=== PATIENT | female | born 1945 | race Hispanic/Latino ===

== ENCOUNTER 2018-04-21 16:19 | Observation (INO) | payer MEDICARE ==
[~2018-04-21] VITALS: Ht 149.9 cm; Wt 60.9 kg
[2018-04-21 17:49] LABS: BASOPHILS # (AUTO) 0.1 (0.0-0.1); BASOPHILS % 0.4 % (0.0-1.0); EOSINOPHILS # (AUTO) 0.2 (0.0-0.4); EOSINOPHILS % 1.6 % (0.0-6.0); HEMATOCRIT 42.8 % (34.2-44.1); HEMOGLOBIN 14.7 g/dL (12.0-16.0); LYMPHOCYTES # (AUTO) 2.7 (1.0-3.2); LYMPHOCYTES % 22.2 % (18.0-39.1); MEAN CORPUSCULAR HEMOGLOBIN 30.7 pg (28-32); MEAN CORPUSCULAR HGB CONC 34.3 g/dL (31-35); MEAN CORPUSCULAR VOLUME 89.4 fL (81-99); MONOCYTES # (AUTO) 0.9 (0.2-0.8); MONOCYTES % 7.8 % (4.4-11.3); NEUTROPHILS # (AUTO) 8.1 (2.1-6.9); NEUTROPHILS % 67.7 % (38.7-80.0); PLATELET COUNT 322 x10e3/uL (140-360); RED BLOOD COUNT 4.79 x10e6/uL (3.6-5.1); RED CELL DISTRIBUTION WIDTH 12.3 % (11.7-14.4)
[2018-04-21 17:54] LABS: CLARITY,URINE HAZY (CLEAR); COLOR,URINE YELLOW (YELLOW); LEUKOCYTE ESTERASE ,URINE NEGATIVE (NEGATIVE); NITRITE,URINE NEGATIVE (NEGATIVE)
[2018-04-21 17:55] LABS: BILIRUBIN,URINE NEGATIVE (NEGATIVE); KETONES,URINE NEGATIVE (NEGATIVE); PROTEIN,URINE DIPSTICK NEGATIVE (NEGATIVE); URINE UROBILINOGEN 0.2 mg/dL (0.2 - 1)
[2018-04-21 18:10] LABS: ALBUMIN 4.2 g/dL (3.5-5.0); ALBUMIN/GLOBULIN RATIO 0.9 (0.8-2.0); ANION GAP 19.6 mmol/L (8-16); CALCIUM 10.1 mg/dL (8.4-10.2); CREATININE, SERUM 1.27 mg/dL (0.57-1.11); POTASSIUM 3.6 mmol/L (3.5-5.1)
[2018-04-21 18:26] LABS: BACTERIA,URINE FEW /HPF; EPITHELIAL CELLS,URINE MANY /LPF; RBC,URINE 0-5 /HPF (0-5)
[2018-04-21] MEDS ORDERED: SODIUM CHLORIDE 0.9% 50ML 0 ML ONE (21:17)
[2018-04-21] MEDS ORDERED: IOPAMIDOL 370 MG/ML 200 ML INFUS..BTL INJ ONE (21:17)
[2018-04-21] MEDS ORDERED: SODIUM CHLORIDE 0.9% 1000ML 1,000 ML IV STA (21:37)
[2018-04-21] MEDS ORDERED: SODIUM CHLORIDE 0.9% 1000ML 1,000 ML ONE (21:41)
--- NOTE | 2018-04-21 23:11 | Diagnostic Imaging Report ---
EXAM: CT Abdomen and Pelvis WITH contrast INDICATION: abd pain with BM COMPARISON: None. TECHNIQUE: Abdomen and pelvis were scanned utilizing a multidetector helical scanner from the lung base to the pubic symphysis after administration of IV contrast. Coronal and sagittal reformations were obtained. Routine protocol was performed. Scan was performed when during portal venous phase. IV CONTRAST: 100 mL of Isovue-370 ORAL CONTRAST: Water COMPLICATIONS: None RADIATION DOSE: Total DLP: 302 mGy*cm Estimated effective dose: (DLP x 0.015 x size factor) mSv Dose modulation, iterative reconstruction, and/or weight based adjustment of the mA/kV was utilized to reduce the radiation dose to as low as reasonably achievable. FINDINGS: LINES and TUBES: None. LOWER THORAX: Unremarkable HEPATOBILIARY: The liver is diffuse hypodense compared to the spleen, consistent with diffuse hepatic diffuse hepatic steatosis. Left hepatic 0.6 cm hypodensity, too small to characterize, statistically likely a cyst. No biliary ductal dilation. CBD prominence likely secondary to age, tapers adjacent to a duodenal diverticulum. GALLBLADDER: No radio-opaque stones or sludge. No wall thickening. SPLEEN: No splenomegaly. PANCREAS: No focal masses or ductal dilatation. ADRENALS: No adrenal nodules KIDNEYS/URETERS: Small right kidney. Kidneys enhance symmetrically. No hydronephrosis. Left inferior renal pole 0.7 cm hypodensity, too small to characterize, statistically likely a cyst. No stones. GI TRACT: No evidence of obstruction. Sigmoid colonic wall thickening with adjacent stranding in a segment containing numerous diverticula. A 2.1 cm area of hypoattenuation within the wall (series 2 image 58), nonspecific, possibly edema versus mass. Appendix is normal. PELVIC ORGANS/BLADDER: Left ovarian 4.2 cm benign-appearing cyst. Otherwise, unremarkable. LYMPH NODES: No lymphadenopathy. VESSELS: Unremarkable. PERITONEUM / RETROPERITONEUM: No free air or fluid. BONES: Unremarkable. SOFT TISSUES: Unremarkable. IMPRESSION: Findings suggestive of acute sigmoid colonic diverticulitis. Underlying mass not excluded. Recommend follow-up CT after appropriate therapy to document resolution. Left ovarian 4.2 cm benign-appearing cyst. Per ACR 2013 white paper guidelines, recommend further evaluation with pelvic ultrasound. Signed by: DR. Corby Jenkins MD on 04/21/2018 11:07 PM
[2018-04-22] MEDS ORDERED: CIPROFLOXACIN 400 MG/D5W 200ML 200 ML IV STA (00:10)
[2018-04-22] MEDS ORDERED: MORPHINE SULFATE INJ 4 MG/ML INJ 1ML IV PRN (00:15)
[2018-04-22] MEDS ORDERED: ONDANSETRON HCL INJ 2MG/ML 2ML 2 MG/ML VIAL IV PRN (00:15)
[2018-04-22] MEDS ORDERED: TIMOPTIC 0.25%1 EACH (00:45)
[2018-04-22] MEDS ORDERED: LEVOTHYROXINE50 MCG PO (00:45)
[2018-04-22] MEDS ORDERED: MOTRIN200 MG PO (00:45)
[2018-04-22] MEDS ORDERED: GLIMEPIRIDE2 MG PO (00:45)
[2018-04-22] MEDS ORDERED: SIMVASTATIN10 MG PO (00:45)
[2018-04-22] MEDS ORDERED: LOSARTAN-HCTZ1 EAC1 PO (00:45)
[2018-04-22] MEDS ORDERED: OMEPRAZOLE20 MG PO (00:45)
[2018-04-22] MEDS ORDERED: DEXTROSE 50% SYRINGE 50 ML IV PRN ×2 (01:30→18:30)
--- OUTSIDE RECORDS SUMMARY | 2018-04-22 02:31 | XMS REPORT ---
Author Author [facility] Address Unknown Phone Unavailable Care Team Providers Care Retail Planning Manager Name Role Phone Sherman LOPEZ Unavailable Unavailable Problems This patient has no known problems. Allergies, Adverse Reactions, Alerts This patient has no known allergies or adverse reactions. Medications This patient has no known medications. Results Test Description Test Time Test Comments Text Results Atomic Results Result Comments CT ABDOMEN/PELVIS W 2018-04-21 22:48:00 [place] [address] Patient Name: BORIS HARGROVE MR #: [id number] : 1945 Age/Sex: 72/F Req #: [id number] Adm Physician: Ordered by: NEGRITA CALVIN MD Report #: [id number] Location: ER Room/Bed: Procedure: [id number] CT/CT ABDOMEN/PELVIS W Exam Date: 04/21/18 Exam Time: 2231 REPORT STATUS: Signed EXAM: CT Abdomen and Pelvis WITH contrast INDIC ATION: abd pain with BM COMPARISON: None. TECHNIQUE: Abdomen and pelvis were scanned utilizing a multidetector helical scanner from the lung base to the pubic symphysis after administration of IV contrast. Coronal and sagittal reformations were obtained. Routine protocol was performed. Scan was performed when during portal venous phase. IV CONTRAST: 100 mL of Isovue-370 ORAL CONTRAST: Water COMPLICATIONS: None RADIATION DOSE: Total DLP: 302 mGy*cm Estimated effective dose: (DLP x 0.015 x size factor) mSv Dose modulation, iterative reconstruction, and/or weight based adjustment of the mA/kV was utilized to reduce the radiation dose to as low as reasonably achievable. FINDINGS: LINES and TUBES: None. LOWER THORAX: Unremarkable HEPATOBILIARY: The liver is diffuse hypodense compared to the spleen, consistent with diffuse hepatic diffuse hepatic steatosis. Left hepatic 0.6 cm hypodensity, too small to characterize, statistically likely a cyst. No biliary ductal dilation. CBD prominence likely secondary to age, tapers adjacent to a duodenal diverticulum. GALLBLADDER: No radio-opaque stones or sludge. No wall thickening. SPLEEN: No splenomegaly. PANCREAS: No focal masses or ductal dilatation. ADRENALS: No adrenal nodules KIDNEYS/URETERS: Small right kidney. Kidneys enhance symmetrically. No hydronephrosis. Left inferior renal pole 0.7 cm hypodensity, too small to characterize, statistically likely a cyst. No stones. GI TRACT: No evidence of obstruct ion. Sigmoid colonic wall thickening with adjacent stranding in a segment containing numerous diverticula. A 2.1 cm area of hypoattenuation within the wall (series 2 image 58), nonspecific, possibly edema versus mass. Appendix is normal. PELVIC ORGANS/BLADDER: Left ovarian 4.2 cm benign-appearing cyst. Otherwise, unremarkable. LYMPH NODES: No lymphadenopathy. VESSELS: Unremarkable. PERITONEUM / RETROPERITONEUM: No free air or fluid. BONES: Unremarkable. SOFT TISSUES: Unremarkable. IMPRESSION: Findings suggestive of acute sigmoid colonic diverticulitis. Underlying mass not excluded. Recommend follow-up CT after appropriate therapy to document resolution. Left ovarian 4.2 cm benign-appearing cyst. Per ACR 2013 white paper guidelines, recommend further evaluation with pelvic ultrasound. Signed by: DR. Corby Martin MD on 04/21/2018 11:07 PM Dictated By: CORBY MARTIN MD 06 Transcribed By: AMADA on 04/21/182306 COPY TO: NEGRITA CALVIN MD
[2018-04-22] MEDS: D5.45%NS/KCL 20MEQ 1,000 ML IV SCH ×3 (02:40→21:05)
[2018-04-22] MEDS: METRONIDAZOLE 500MG/NS 100ML IV SCH ×4 (07:46→21:05)
[2018-04-22] MEDS: INSULIN REGULAR, HUMAN 100 UNIT/1 ML 3ML VIAL SQ SCH ×5 (08:07→21:04)
--- NOTE | 2018-04-22 13:11 | NUR ---
patient arrived on unit via bed, alert and oriented and in no distress. Call perez within reach, bed in lowest position and family at bedside.
[2018-04-22 13:54] VITALS: BP 138/73
[2018-04-22 14:16] VITALS: BP 138/73
[2018-04-22 15:52] VITALS: BP 143/171
[2018-04-22] MEDS: METRONIDAZOLE 500MG/NS 100ML 100 ML IV SCH (19:00)
--- NOTE | 2018-04-22 19:10 | NUR ---
rounded with adobe cq developer nurse, patient aware of change. Call perez within reach, bed in lowest position and family at bedside.
--- NOTE | 2018-04-22 19:21 | NUR ---
report received and walking rounds complete. pt resting in bed and in no apparent distress. bangladeshi speaking. family member at bedside and to stay the night.
[2018-04-22 20:00] VITALS: BP 143/171
[2018-04-22 20:10] VITALS: BP 174/82
[2018-04-22 23:47] VITALS: BP 179/82
[2018-04-23] VITALS (7 sets, daily range): BP systolic 140–169; BP diastolic 66–81
[2018-04-23] MEDS: METRONIDAZOLE 500MG/NS 100ML 100 ML IV SCH ×3 (03:03→19:53)
[2018-04-23 05:46] LABS: BASOPHILS % 0.4 % (0.0-1.0); EOSINOPHILS # (AUTO) 0.2 (0.0-0.4); EOSINOPHILS % 2.7 % (0.0-6.0); HEMATOCRIT 35.9 % (34.2-44.1); HEMOGLOBIN 11.9 g/dL (12.0-16.0); LYMPHOCYTES % 22.9 % (18.0-39.1); MEAN CORPUSCULAR HEMOGLOBIN 30.4 pg (28-32); MEAN CORPUSCULAR HGB CONC 33.1 g/dL (31-35); MEAN CORPUSCULAR VOLUME 91.6 fL (81-99); NEUTROPHILS # (AUTO) 5.6 (2.1-6.9); NEUTROPHILS % 62.7 % (38.7-80.0); PLATELET COUNT 291 x10e3/uL (140-360); RED BLOOD COUNT 3.92 x10e6/uL (3.6-5.1); RED CELL DISTRIBUTION WIDTH 12.4 % (11.7-14.4)
[2018-04-23] MEDS: LEVOTHYROXINE SODIUM 50 MCG TAB PO SCH (06:17)
--- NOTE | 2018-04-23 06:18 | NUR ---
Pt daughter reports that she took her mother to the bathroom and she had a BM with some mucus and a bit of blood in it. Informed them I would informed day shift nurse to inform MD and that MD would be coming by this am.
[2018-04-23 06:22] LABS: ANION GAP 13.5 mmol/L (8-16); CREATININE, SERUM 0.91 mg/dL (0.57-1.11); POTASSIUM 4.5 mmol/L (3.5-5.1)
--- NOTE | 2018-04-23 07:24 | NUR ---
report given and walking rounds complete. pt resting and in no apparent distress. family at bedside
[2018-04-23] MEDS: INSULIN REGULAR, HUMAN 100 UNIT/1 ML 3ML VIAL SQ SCH ×6 (07:30→21:43)
[2018-04-23] MEDS: LOSARTAN POTASSIUM 100 MG TAB PO SCH (08:39)
[2018-04-23] MEDS: HYDROCHLOROTHIAZIDE 25 MG TAB PO SCH (08:40)
[2018-04-23] MEDS ORDERED: NON-FORMULARY MEDICATION (Losartan/Hydrochlorothiazide (Losartan-Hctz 100-25 Mg Tab) 1 TAB PO SCH (09:00)
[2018-04-23] MEDS: D5.45%NS/KCL 20MEQ 1,000 ML IV SCH ×2 (12:25→16:10)
--- NOTE | 2018-04-23 13:14 | NUR ---
SOCIAL WORK INITIAL ASSESSMENT Utility Bagger to bedside to discuss plan of care with patient/family. CM/SW role and care transitions discussed. Anticipated discharge plan discussed along with duration of care. CM/SW discussed patients right to make decisions in care. CM/SW work hours given. Patient lives: IN WON HOUSE WITH DAUGHTER Admit/Transfer: VIA ED POA/Emergency contact: DAUGHTER IN LAW SHANNA [phone] Current/Previous Home Health: NONE PCP/Follow-up Care: JACQUELINE Current/Previous DME: NONE Other Services: NONE Employment Status: RETIRED Areas of Concerns: NONE Referral Needs: NONE Education Needs: NONE IMM/MAGANA given and signed (if applicable): UPON ADMISSION Goal for discharge: RETURN HOME WITH DAUGHTER IN LAW CM/SW left business card at the bedside with contact information. Name and number was also written on the patients whiteboard. Patient verbalized understanding of discussion. CM will follow-up with ongoing discharge and transition of care needs.
--- NOTE | 2018-04-23 13:22 | NUR ---
POST DISCHARGE STATUS FORM FILED IN CHART TO RETURN HOME WITH NO NEEDS
[2018-04-23] MEDS ORDERED: ACETAMINOPHEN 325 MG TAB PO PRN (17:15)
--- NOTE | 2018-04-23 19:01 | NUR ---
Report given to oncoming shift. Call perez within reach.
[2018-04-24] VITALS (7 sets, daily range): BP systolic 123–177; BP diastolic 66–84
[2018-04-24] MEDS: D5.45%NS/KCL 20MEQ 1,000 ML IV SCH (00:02)
[2018-04-24] MEDS ORDERED: LISINOPRIL 2.5 MG TAB PO ONE (02:45)
[2018-04-24] MEDS: METRONIDAZOLE 500MG/NS 100ML 100 ML IV SCH ×3 (02:56→19:49)
[2018-04-24 06:02] LABS: ANION GAP 12.8 mmol/L (8-16); CALCIUM 9.2 mg/dL (8.4-10.2); CREATININE, SERUM 0.95 mg/dL (0.57-1.11); POTASSIUM 4.8 mmol/L (3.5-5.1)
[2018-04-24] MEDS: LEVOTHYROXINE SODIUM 50 MCG TAB PO SCH (06:32)
[2018-04-24] MEDS: INSULIN REGULAR, HUMAN 100 UNIT/1 ML 3ML VIAL SQ SCH ×4 (07:49→20:56)
[2018-04-24] MEDS: LOSARTAN POTASSIUM 100 MG TAB PO SCH (09:08)
[2018-04-24] MEDS: HYDROCHLOROTHIAZIDE 25 MG TAB PO SCH (09:08)
[2018-04-24] MEDS: LISINOPRIL 2.5 MG TAB PO SCH (09:09)
[2018-04-25] VITALS: BP 153/77
--- NOTE | 2018-04-25 00:42 | NUR ---
dr Tripp Weinstein came and made round, ordered to change diet to GI soft diet.
[2018-04-25] MEDS: METRONIDAZOLE 500MG/NS 100ML 100 ML IV SCH (03:54)
[2018-04-25 04:00] VITALS: BP 153/82
[2018-04-25 04:05] VITALS: BP 153/77
[2018-04-25 07:22] VITALS: BP 109/56
[2018-04-25] MEDS: LEVOTHYROXINE SODIUM 50 MCG TAB PO SCH (07:29)
--- NOTE | 2018-04-25 07:55 | NUR ---
patient up in bed, Alert with no distress, call light in reach denies any pain, daughter at bed side
[2018-04-25] MEDS: HYDROCHLOROTHIAZIDE 25 MG TAB PO SCH (08:20)
[2018-04-25] MEDS: LOSARTAN POTASSIUM 100 MG TAB PO SCH (08:20)
[2018-04-25] MEDS: LISINOPRIL 2.5 MG TAB PO SCH (08:20)
--- NOTE | 2018-04-25 09:18 | NUR ---
CM LEFT MESSAGE WITH DR. KURTZ REGARDING PATIENT BARRIER TO DISCHARGE. MD PENDING RETURN CALL. CM CALLED BEDSIDE RN, BRADLEY REGARDING PATIENT BARRIERS TO DISCHARGE. PER BRADLEY, PATIENT TO POSSIBLY BE DISCHARGING TODAY. BRADLEY STATES HE WILL CALL MD PRIOR TO ROUNDS FOR PATIENT PLAN OF CARE. CM TO FOLLOW UP.
[2018-04-25 10:38] VITALS: BP 109/56
[2018-04-25 11:22] VITALS: BP 128/72
[2018-04-25] MEDS ORDERED: FLAGYL250 MG PO (13:56)
[2018-04-25] MEDS ORDERED: LEVAQUIN500 MG PO (13:58)
--- NOTE | 2018-04-25 14:55 | NUR ---
patient discharged home, prescription given, she and her daughter aware about f/up with Dr Tripp Weinstein, IV canula removed with tip intact, no ss of infiltration noted, daughter at bed side taking her home, all personnel belongings taken with her, transported via to [facility]
== END 2018-04-25 14:45 | disposition home or self-care (01) ==
LOC: ER 16:19 → ERHOLD 04-22 02:26 → IMCU 04-22 13:20
DX: K57.30 Diverticulosis of large intestine without perforation or abscess without bleeding (principal); E11.9 Type 2 diabetes mellitus without complications; I10 Essential (primary) hypertension; K21.9 Gastro-esophageal reflux disease without esophagitis; E78.5 Hyperlipidemia, unspecified; Z79.84 Long term (current) use of oral hypoglycemic drugs
CPT/HCPCS: 36415 ×4; 74177; 80048 ×2; 80053; 81001; 82948 ×3; 84080; 85025 ×2; 96360; 96361 ×3; 99285; G0378 ×4; J0744; J1817; J7030; Q9967

== ENCOUNTER → 2018-06-19 | Day surgery (SDC) | payer MEDICARE ==
[2018-06-14 09:30] LABS: BASOPHILS # (AUTO) 0.1 (0.0-0.1); BASOPHILS % 0.6 % (0.0-1.0); EOSINOPHILS # (AUTO) 0.2 (0.0-0.4); EOSINOPHILS % 1.7 % (0.0-6.0); HEMATOCRIT 41.9 % (34.2-44.1); HEMOGLOBIN 14.1 g/dL (12.0-16.0); LYMPHOCYTES # (AUTO) 1.9 (1.0-3.2); LYMPHOCYTES % 20.2 % (18.0-39.1); MEAN CORPUSCULAR HEMOGLOBIN 31.1 pg (28-32); MEAN CORPUSCULAR HGB CONC 33.7 g/dL (31-35); MEAN CORPUSCULAR VOLUME 92.3 fL (81-99); MONOCYTES # (AUTO) 0.7 (0.2-0.8); MONOCYTES % 7.6 % (4.4-11.3); NEUTROPHILS # (AUTO) 6.4 (2.1-6.9); NEUTROPHILS % 69.6 % (38.7-80.0); PLATELET COUNT 315 x10e3/uL (140-360); RED BLOOD COUNT 4.54 x10e6/uL (3.6-5.1); RED CELL DISTRIBUTION WIDTH 12.3 % (11.7-14.4)
[~2018-06-19] MED LIST: FLAGYL250 MG PO; GLIMEPIRIDE2 MG PO; LABETALOL HCL 5 MG/ML 20ML VIAL ONE; LATANOPROST2.5 ML OP; LEVAQUIN500 MG PO; LEVOTHYROXINE50 MCG PO; LIDOCAINE HCL 2% LOCAL INJ 5 ML SDV VIAL INJ ONE; LOSARTAN-HCTZ1 EAC1 PO; METFORMIN HCL500 M2 PO; MIDAZOLAM HCL 2 MG/2 ML VIAL ONE; MOTRIN200 MG PO; OMEPRAZOLE20 MG PO; PROPOFOL IV EMULSION 10 MG/ML 50 ML VIAL ONE; SIMVASTATIN10 MG PO; TIMOPTIC 0.25%1 EACH; TIMOPTIC 0.5%1 EACH
[2018-06-19 12:40] VITALS: BP 137/79
--- NOTE | 2018-06-19 18:46 | Operative Report ---
DATE OF PROCEDURE: 06/19/2018 SURGEON: Gene Weinstein MD PROCEDURE: Colonoscopy and polypectomy. INDICATIONS FOR COLONOSCOPY: Colorectal cancer screening. MEDICATIONS: The patient was done under MAC, please see anesthesiologist's note. PROCEDURE IN DETAIL: With the patient in left lateral decubitus position, flexible fiberoptic Olympus colonoscope was inserted into the rectum with ease and advanced to the distal sigmoid colon. It could not be advanced any further secondary to a sharply angulated and tortuous sigmoid colon. The scope was subsequently withdrawn and an EGD scope was introduced into the rectum and advanced with difficulty all the way to the proximal ascending colon. It could not be advanced any further secondary to excessive looping in the left colon. The scope was then withdrawn slowly whatever was visualized, mucosa overlying the ascending, transverse, and proximal descending appeared to be within normal limits. Diverticular disease was noted to involve the distal descending and the sigmoid colon. Two polyps were snared from the sigmoid colon. The rectum grossly appeared to be within normal limits. The scope was then retroflexed into the distal rectum and small internal hemorrhoids were noted, none of which was actively bleeding. The scope was then straightened out, it was subsequently withdrawn. The patient tolerated the procedure well. IMPRESSION: 1. Sigmoid colon sharply angulated and fixed, negotiated only with EGD scope, which could be advanced only to the proximal ascending colon. No obvious obstructing or constricting lesions. 2. Diverticulosis. 3. Sigmoid colon polyps x2 snared. 4. Internal hemorrhoids, none actively bleeding. PLAN: Follow up histology. The patient will need an air-contrast barium enema. Timing of followup colonoscopy pending results of barium enema. Gene Weinstein MD [facility] [place][id number] cc: Maite Palafox MD
== END | disposition home or self-care (01) ==
LOC: OR 08:40
PROVIDERS: ATTEND Internal Medicine Gastroenterology
DX: Z12.11 Encounter for screening for malignant neoplasm of colon (principal); D12.5 Benign neoplasm of sigmoid colon; I10 Essential (primary) hypertension; E11.9 Type 2 diabetes mellitus without complications; E03.9 Hypothyroidism, unspecified; Z01.810 Encounter for preprocedural cardiovascular examination; Z01.812 Encounter for preprocedural laboratory examination; K64.8 Other hemorrhoids; K63.5 Polyp of colon; K57.30 Diverticulosis of large intestine without perforation or abscess without bleeding; Z79.84 Long term (current) use of oral hypoglycemic drugs
CPT/HCPCS: 36415; 45385; 85025; 88305; 93005; J2001; J2250; J2704; J3490; 45378; 45384

== ENCOUNTER 2021-09-01 18:33 | Emergency (ER) | payer MEDICARE ==
[~2021-09-01] VITALS: Ht 149.9 cm; Wt 60.8 kg
[~2021-09-01 18:33] MED LIST changes: -LABETALOL HCL 5 MG/ML 20ML VIAL ONE; -LIDOCAINE HCL 2% LOCAL INJ 5 ML SDV VIAL INJ ONE; -MIDAZOLAM HCL 2 MG/2 ML VIAL ONE; -PROPOFOL IV EMULSION 10 MG/ML 50 ML VIAL ONE
[2021-09-01] MEDS ORDERED: ONDANSETRON HCL INJ 2MG/ML 2ML 2 MG/ML VIAL IV STA ×2 (18:58→20:15)
[2021-09-01] MEDS ORDERED: SODIUM CHLORIDE 0.9% 1000ML 1,000 ML IV ONE (19:00)
[2021-09-01 19:44] LABS: BASOPHILS # (AUTO) 0.1 (0.0-0.1); BASOPHILS % 0.5 % (0.0-1.0); EOSINOPHILS # (AUTO) 0.2 (0.0-0.4); EOSINOPHILS % 1.4 % (0.0-6.0); HEMATOCRIT 38.2 % (34.2-44.1); LYMPHOCYTES # (AUTO) 2.3 (1.0-3.2); MEAN CORPUSCULAR HEMOGLOBIN 29.3 pg (28-32); MEAN CORPUSCULAR HGB CONC 31.4 g/dL (31-35); MEAN CORPUSCULAR VOLUME 93.2 fL (81-99); MONOCYTES # (AUTO) 0.9 (0.2-0.8); MONOCYTES % 8.3 % (4.4-11.3); NEUTROPHILS # (AUTO) 7.5 (2.1-6.9); NEUTROPHILS % 68.5 % (38.7-80.0); PLATELET COUNT 398 x10e3/uL (140-360); RED CELL DISTRIBUTION WIDTH 12.4 % (11.7-14.4)
[2021-09-01 19:47] LABS: CLARITY,URINE SL CLOUDY (CLEAR); COLOR,URINE YELLOW (YELLOW); KETONES,URINE NEGATIVE (NEGATIVE); LEUKOCYTE ESTERASE ,URINE SMALL (NEGATIVE); NITRITE,URINE NEGATIVE (NEGATIVE); PROTEIN,URINE DIPSTICK NEGATIVE (NEGATIVE); URINE UROBILINOGEN 0.2 mg/dL (0.2 - 1)
[2021-09-01 20:01] LABS: ALBUMIN 3.9 g/dL (3.5-5.0); ALBUMIN/GLOBULIN RATIO 0.9 (0.8-2.0); CALCIUM 9.4 mg/dL (8.4-10.2); CREATININE, SERUM 1.62 mg/dL (0.57-1.11)
[2021-09-01 20:02] LABS: AMORPHOUS SEDIMENT,URINE MODERATE (FEW); BACTERIA,URINE MODERATE /HPF; EPITHELIAL CELLS,URINE MODERATE /LPF; RENAL EPITHELIAL CELLS,URINE FEW
[2021-09-01] MEDS ORDERED: Morphine 2mg Syringe 2 MG/ML SYR IV ONE (20:15)
[2021-09-01 21:33] VITALS: BP 142/75
== END 2021-09-01 21:37 | disposition home or self-care (01) ==
LOC: ER 19:00
DX: R10.84 Generalized abdominal pain (principal); K57.90 Diverticulosis of intestine, part unspecified, without perforation or abscess without bleeding; R19.7 Diarrhea, unspecified; R11.2 Nausea with vomiting, unspecified; I10 Essential (primary) hypertension; E11.9 Type 2 diabetes mellitus without complications; K21.9 Gastro-esophageal reflux disease without esophagitis; E78.5 Hyperlipidemia, unspecified
CPT/HCPCS: 36415; 74176; 80053; 81001; 83690; 85025; 99284; J2270; J2405; J7030

== ENCOUNTER 2021-09-07 12:07 | Emergency (ER) | payer MEDICARE ==
[~2021-09-07] VITALS: Ht 149.9 cm; Wt 63.5 kg
[2021-09-07] MEDS ORDERED: SODIUM CHLORIDE 0.9% 1000ML 1,000 ML IV ONE (12:45)
[2021-09-07] MEDS ORDERED: SODIUM CHLORIDE FLUSH 10 ML SYR INJ PRN (12:45)
[2021-09-07] MEDS ORDERED: ONDANSETRON HCL INJ 2MG/ML 2ML 2 MG/ML VIAL IV PRN (12:45)
[2021-09-07 12:54] LABS: BASOPHILS # (AUTO) 0.1 (0.0-0.1); BASOPHILS % 0.7 % (0.0-1.0); EOSINOPHILS # (AUTO) 0.1 (0.0-0.4); EOSINOPHILS % 0.7 % (0.0-6.0); HEMATOCRIT 41.8 % (34.2-44.1); HEMOGLOBIN 13.4 g/dL (12.0-16.0); MEAN CORPUSCULAR HEMOGLOBIN 29.5 pg (28-32); MEAN CORPUSCULAR HGB CONC 32.1 g/dL (31-35); MEAN CORPUSCULAR VOLUME 92.1 fL (81-99); MONOCYTES # (AUTO) 0.8 (0.2-0.8); MONOCYTES % 6.8 % (4.4-11.3); NEUTROPHILS # (AUTO) 8.8 (2.1-6.9); NEUTROPHILS % 74.5 % (38.7-80.0); PLATELET COUNT 396 x10e3/uL (140-360); RED BLOOD COUNT 4.54 x10e6/uL (3.6-5.1); RED CELL DISTRIBUTION WIDTH 12.8 % (11.7-14.4)
[2021-09-07 13:13] LABS: ALBUMIN 4.2 g/dL (3.5-5.0); ANION GAP 19.6 mmol/L (8-16); CALCIUM 10.4 mg/dL (8.4-10.2); CREATININE, SERUM 1.42 mg/dL (0.57-1.11); POTASSIUM 4.6 mmol/L (3.5-5.1)
[2021-09-07 15:05] LABS: CLARITY,URINE CLEAR (CLEAR); COLOR,URINE YELLOW (YELLOW); LEUKOCYTE ESTERASE ,URINE NEGATIVE (NEGATIVE); NITRITE,URINE NEGATIVE (NEGATIVE); PROTEIN,URINE DIPSTICK NEGATIVE (NEGATIVE)
[2021-09-07 15:06] LABS: KETONES,URINE NEGATIVE (NEGATIVE); URINE UROBILINOGEN 0.2 mg/dL (0.2 - 1)
[2021-09-07 15:18] LABS: BACTERIA,URINE RARE /HPF; EPITHELIAL CELLS,URINE FEW /LPF; RBC,URINE 0-5 /HPF (0-5)
[2021-09-07 15:56] VITALS: BP 125/72
== END 2021-09-07 16:01 | disposition home or self-care (01) ==
LOC: ER 12:24
DX: R53.1 Weakness (principal); N17.9 Acute kidney failure, unspecified; R19.7 Diarrhea, unspecified; E11.65 Type 2 diabetes mellitus with hyperglycemia; I10 Essential (primary) hypertension; Z20.822 Contact with and (suspected) exposure to COVID-19
CPT/HCPCS: 36415; 71045; 80053; 81001; 83690; 85025; 93005; 99284; J2405; J7030; U0002